=== PATIENT | female | born 1980 | race Hispanic/Latino ===

== ENCOUNTER 2024-09-11 13:14 | Emergency (ER) | payer SELFPAY ==
[2024-09-11] MEDS ORDERED: Sucralfate 1 GM/10 ML UDCUP ONE (14:49)
[2024-09-11] MEDS ORDERED: Mag-Al Plus 1200/1200/120 MG (30 mL) UDCUP ONE (14:49)
[2024-09-11] MEDS ORDERED: Famotidine/PF 20 mg/2ml Vial ONE (14:50)
[2024-09-11 15:02] LABS: #Basophils 0.1 thou/uL (0.0-0.2); #Eosinophils 0.2 thou/uL (0.0-0.7); #Lymphocytes 2.7 thou/uL (1.20-3.40); #Monocytes 0.5 thou/uL (0.11-0.59); #Neutrophils 3.7 thou/uL (1.40-6.50); %Basophils 1.6 % (0.0-1.0); %Eosinophils 2.9 % (0.0-10.0); %Lymphocytes 37.9 % (21.0-51.0); %Monocytes 6.2 % (0.0-10.0); %Neutrophils 51.4 % (42.0-75.0); Hematocrit 40.5 % (36.0-47.0); Hemoglobin 12.6 g/dL (12.0-16.0); Mean Corpuscular HGB CONC 31.1 g/dL (32.0-36.0); Mean Corpuscular Hemoglobin 25.6 pg (27.0-31.0); Mean Corpuscular Volume 82.3 fl (78.0-98.0); Mean Platelet Volume 7.1 fL (7.4-10.4); Platelet Count 388 10x3/uL (130-400); RBC Distribution Width 12.3 % (11.5-14.5); Red Blood Cell (RBC) Count 4.92 mill/uL (4.20-5.40); White Blood Cell (WBC) Count 7.2 10x3/uL (4.8-10.8)
[2024-09-11 15:12] LABS: ALT (SGPT) 29 U/L (Less than 34); AST (SGOT) 22 U/L (11-34); Albumin 4.2 g/dL (3.1-4.5); Alkaline Phosphatase 74 U/L (40-110); Anion Gap 14 mmol/L (10-20); BUN (Urea Nitrogen) 10 mg/dL (7.0-18.7); Bilirubin, Total 0.4 mg/dL (0.3-1.2); Calc. Creatinine Clearance 0 mL/min (70-130); Calcium 9.9 mg/dL (7.8-10.44); Carbon Dioxide 24 mmol/L (22-29); Chloride 105 mmol/L (98-107); Estimated GFR 113; Globulin 3.8 g/dL (2.4-3.5); Glucose 89 mg/dL (70-105); Lipase 36 U/L (8-78); Potassium 4.4 mmol/L (3.5-5.1); Sodium 139 mmol/L (136-145)
[2024-09-11 15:13] LABS: Troponin I Less than 0.010 ng/mL (< 0.028)
== END 2024-09-11 15:44 | disposition home or self-care (01) ==
LOC: NAV ERS 13:14
DX: R10.13 Epigastric pain (principal)
CPT/HCPCS: 71046; 80053; 83690; 84484; 85025; 93005; 96374; J3490